=== PATIENT | female | born 1995 | race African-American/Black ===

== ENCOUNTER → 2025-01-17 | Outpatient (CLI) | payer OTHER ==
[2025-01-17 12:05] LABS: PLATELET COUNT (AUTO) 430 K/uL (150-450); RED BLOOD CELL COUNT(AUTO) 4.46 MIL/uL (4.00-5.20); RED CELL DISTRIBUTION WIDTH 14.9 % (11.5-14.5); WHITE BLOOD COUNT (AUTO) 6.7 K/uL (4.5-11.0)
== END | disposition home or self-care (01) ==
LOC: LABMN 11:33
PROVIDERS: ATTEND Chiropractor
DX: M19.042 Primary osteoarthritis, left hand (principal); M19.041 Primary osteoarthritis, right hand; D50.9 Iron deficiency anemia, unspecified
CPT/HCPCS: 85025